=== PATIENT | male | born 1945 | race Caucasian/White ===

== ENCOUNTER 2016-09-21 10:07 | Outpatient (CLI) | payer MEDICARE, OTHER ==
[2016-09-21 17:53] LABS: Creatinine, Urine 89.34 mg/dL (63-166); Microalbumin Urine Less than 1.0 mg/dL (0.5-50.0); Microalbumin/Creat Ratio 11.2 mg/g (Less than 30)
== END 2016-09-21 10:08 | disposition home or self-care (01) ==
LOC: HPCALD 10:07
PROVIDERS: ATTEND Family Medicine
DX: E11.9 Type 2 diabetes mellitus without complications (principal)
CPT/HCPCS: 82043

== ENCOUNTER 2017-12-31 09:22 | Outpatient (CLI) | payer MEDICARE, OTHER ==
--- NOTE | 2017-12-31 11:26 | RAD ---
LUMBAR SPINE SERIES: Date: 12/31/17 INDICATION: Left side sciatica, pain. FINDINGS: There is multilevel disc space narrowing, with marginal osteophyte formation. Multilevel degenerative facet sclerosis is seen. There is mild retrolisthesis of L2 on L3. No compression deformity. Slight right convexity curvature is centered at the lower lumbar spine. There is incidental note of atherosc lerosis and a partially imaged AICD. IMPRESSION: Multilevel degenerative changes of the lumbar spine. No acute compression deformity. POS: [facility]
== END 2017-12-31 09:23 | disposition home or self-care (01) ==
LOC: BURRAD 09:22
PROVIDERS: ATTEND Family Medicine
DX: M54.32 Sciatica, left side (principal); M47.896 Other spondylosis, lumbar region
CPT/HCPCS: 72100

== ENCOUNTER 2019-11-21 10:49 | Outpatient (CLI) | payer MEDICARE, OTHER ==
--- NOTE | 2019-11-21 18:37 | RAD ---
LEFT HIP TWO VIEWS: 11/21/19 No fracture, dislocation or joint space narrowing was seen. The adjacent pubic ring appears intact. F emoral artery calcifications are present. The articular surface of the hip joint is smooth. IMPRESSION: No acute finding. POS: HOME
--- NOTE | 2019-11-21 19:51 | RAD ---
LUMBAR SPINE THREE VIEWS: 11/21/19 Comparison is made with a 12/31/17 study. There has been no significant change in the interval. Mild to moderate arthritic changes consisting o f osteophytes and facet arthritis in the lower levels is again noted. The disc spaces are largely nor mal in height. There is no dislocation or other acute change. The SI joints appear normal. IMPRESSION: Mild arthritic changes with no significant differences compared to the 2018 study. POS: HOME
== END 2019-11-21 10:50 | disposition home or self-care (01) ==
LOC: BURRAD 10:49
PROVIDERS: ATTEND Family Medicine
DX: S70.02XA Contusion of left hip, initial encounter (principal); M47.26 Other spondylosis with radiculopathy, lumbar region
CPT/HCPCS: 72100

== ENCOUNTER 2020-02-25 09:26 | Outpatient (CLI) | payer MEDICARE, OTHER ==
--- NOTE | 2020-02-25 14:22 | CT ---
CT LUMBAR SPINE WITHOUT CONTRAST: 02/25/[address] of the lumbar spine was done for evaluation of a lumbar radiculopathy. No fracture, disloca tion, or disc space narrowing was seen. There is minor retrolisthesis of L2 on L3 that is probably no t significant. Some mild to moderate facet arthritis changes are seen throughout. No bony destructive lesions were noted. The aorta is densely calcified. Findings by level follow: T12-L1: No acute findings. L1-L2: No acute findings. L2-L3: Mild facet overgrowth and mild concentric bulging of the disc. No true spinal stenosis or foca l protrusion was seen. L3-L4: No acute findings. Mild facet hypertrophy bilaterally. L4-L5: There is moderate facet overgrowth and arthritis, right greater than left. There are two small rounded air density areas in the spinal canal at this level. The larger is on the left and potential ly would affect either the left L4 or L5 roots. The smaller is on the right at the entrance to the ri ght neural foramen and would potentially affect the right L4 root. These are presumed to be small ext ruded disc fragments. L5-S1: No acute findings. No evidence of neural compromise. The SI joints were unremarkable. The visible soft tissues showed no acute change. IMPRESSION: 1. Possible small extruded gas filled disc fragments at L4-L5 on each side. See full description above. It is not clear if either cause significant neural impingement or not. I would recommend an M RI for follow-up if needed. 2. Mild to moderate facet arthritis, particularly in the lower lumbar spine. POS: HOME
== END 2020-02-25 09:27 | disposition home or self-care (01) ==
LOC: BURCT 09:26
PROVIDERS: ATTEND Family Medicine
DX: M47.816 Spondylosis without myelopathy or radiculopathy, lumbar region (principal); M54.32 Sciatica, left side
CPT/HCPCS: 72131

== ENCOUNTER 2021-06-06 09:32 | Emergency (ER) | payer MEDICARE, OTHER ==
[2021-06-06 10:03] LABS: #Eosinphils 0.1 thou/uL (0.0-0.7); #Monocytes 0.6 thou/uL (0.11-0.59); #Neutrophils 4.4 thou/uL (1.40-6.50); %Basophils 0.8 % (0.0-1.0); %Eosinophils 2.1 % (0.0-10.0); %Lymphocytes 16.6 % (21.0-51.0); %Monocytes 9.6 % (0.0-10.0); Mean Corpuscular HGB CONC 30.8 g/dL (32.0-36.0); Mean Corpuscular Hemoglobin 27.7 pg (27.0-31.0); Mean Corpuscular Volume 89.8 fL (78.0-98.0); Mean Platelet Volume 8.3 fL (7.4-10.4); Platelet Count 252 thou/uL (130-400); RBC Distribution Width 14.9 % (11.5-14.5); Red Blood Cell (RBC) Count 4.71 mill/uL (4.70-6.10); White Blood Cell (WBC) Count 6.2 thou/uL (4.8-10.8)
[2021-06-06] MEDS ORDERED: Aspirin Chewable 81 MG TAB ONE (10:04)
[2021-06-06] MEDS ORDERED: Nitroglycerin 2% Ointment 1 INCH/1 GM Packet ONE (10:04)
[2021-06-06] MEDS ORDERED: Nitroglycerin 0.4 MG TAB 1 EACH ONE (10:04)
[2021-06-06 10:25] LABS: ALT (SGPT) 17 U/L (8-55); AST (SGOT) 23 U/L (5-34); Albumin 3.6 g/dL (3.4-4.8); Alkaline Phosphatase 57 U/L (40-110); Anion Gap 15 mmol/L (10-20); BUN (Urea Nitrogen) 12 mg/dL (8.4-25.7); Calc. Creatinine Clearance 0 mL/min (70-130); Calcium 9.3 mg/dL (7.8-10.44); Carbon Dioxide 26 mmol/L (23-31); Chloride 105 mmol/L (98-107); Globulin 3.5 g/dL (2.4-3.5); Glucose 110 mg/dL (83-110); Magnesium 1.6 mg/dL (1.6-2.6); Potassium 4.2 mmol/L (3.5-5.1); Protein, Total 7.1 g/dL (5.8-8.1); Sodium 142 mmol/L (136-145)
[2021-06-06] MEDS ORDERED: Furosemide 40 MG/4 ML VIAL ONE (10:42)
[2021-06-06 10:49] LABS: SARS-CoV-2 NAA Rapid Test Not Detected (NotDetected)
== END 2021-06-06 11:30 | disposition short-term general hospital (02) ==
LOC: BURERS 09:32
DX: I11.0 Hypertensive heart disease with heart failure (principal); I50.9 Heart failure, unspecified; E78.00 Pure hypercholesterolemia, unspecified; Z87.891 Personal history of nicotine dependence; E11.9 Type 2 diabetes mellitus without complications
CPT/HCPCS: 71045; 80053; 83735; 83880; 84484; 85025; 93005; 96374; J1940; U0002

== ENCOUNTER 2023-07-18 14:28 | Outpatient (CLI) | payer MEDICARE, OTHER | END 2023-07-18 14:29 | disposition home or self-care (01) | LOC: BURRAD 14:28 | PROVIDERS: ATTEND Family Medicine | DX: I50.1 Left ventricular failure, unspecified (principal); I51.7 Cardiomegaly | CPT/HCPCS: 71046 ==